=== PATIENT | male | born 1950 | race Hispanic/Latino ===

== ENCOUNTER 2016-09-13 10:49 | Outpatient (CLI) | payer BC ==
[2016-09-13 11:44] LABS: Blood Urea Nitrogen 11 mg/dL (9-20)
[2016-09-13] MEDS ORDERED: NACL ONE (12:15)
--- NOTE | 2016-09-14 07:48 | Cat Scan Report ---
CT SCAN OF THE ABDOMEN AND PELVIS WITH CONTRAST: HISTORY: Hematuria. TECHNIQUE: Helical CT in 1.25mm intervals following IV contrast. Sagittal and coronal reconstructions. COMPARISON: CT abdomen pelvis without contrast dated 04/19/16. FINDINGS: The prostate gland is moderately enlarged measuring 6.6 x 6.0 cm in axial plane and 7.4 cm in craniocaudal plane. No discrete prostate mass. No pelvic adenopathy. Correlate with PSA levels. The kidneys are normal size, contour and position. There is normal enhancement and excretion following IV contrast. A few tiny parapelvic cysts in the left renal sinus are noted. No renal mass or obvious renal stones. The ureters are normal course and caliber. No ureteral stones or abnormal dilatation. There is a moderate indentation along the bladder base because of the enlarged prostate gland. Otherwise, the bladder is normal. There is a 2 mm bladder calculus on the right side. In retrospect, this tiny calculus was seen on the 2016 exam. The liver is normal in size and is without focal defect. No gallstones or biliary dilatation are noted. The spleen and pancreas demonstrate a normal size and attenuation with no evidence of abnormal mass. The adrenal glands are normal. There is no intestinal obstruction or ascites. Normal appendix. The abdominal aorta is normal. No abnormalities are identified within the retroperitoneum or mesentery. There is no evidence of peritoneal air or fluid. There is no evidence of any abnormal masses or fluid collections within the pelvis. No adenopathy is identified. IMPRESSION: Enlarged prostate gland. 2 mm bladder calculus. Few tiny parapelvic cysts in the left renal sinus, otherwise, the kidneys are normal.
== END 2016-09-13 10:50 | disposition home or self-care (01) ==
LOC: CT 10:49
PROVIDERS: ATTEND Urology
DX: N28.1 Cyst of kidney, acquired (principal); N40.0 Benign prostatic hyperplasia without lower urinary tract symptoms; N20.0 Calculus of kidney
CPT/HCPCS: 36415; 74177; 82565; 84520; Q9967

== ENCOUNTER 2016-11-07 10:02 | Inpatient (IN) | payer BC ==
[2016-11-07] MEDS ORDERED: NACL 0.9% 1000 ML 1,000 ML IV ONE ×2 (10:28→12:02)
--- NOTE | 2016-11-07 10:53 | Emergency Department Report ---
Entered by MYA LING, acting as scribe for NIR RESTREPO NP. Chief Complaint: Urogenital-Male Stated Complaint: SWOLLEN TESTICLE/FEVER 103 Time Seen by Provider: 11/07/16 10:26 - HPI History of Present Illness: 66 y/o male presents to the ED c/o swollen testicle, fever, low blood pressure. PT states this am at 0300 his temp was 103. pt states he took an old antibiotic this morning. last dose of Tylenol was 2300 yesterday - ROS Review of Systems: Swollen testicle, fever and pain + dizziness when standing - Exam Vital Signs: Vital Signs 11/07/16 10:31 Temperature 99.5 F Pulse Rate 76 Respiratory 18 Rate Blood Pressure 91/63 O2 Sat by Pulse 99 Oximetry Physical Exam: pt looks well, non toxic gu exam not done in triage MSE screening note: Focused history and physical exam performed. Due to findings the following was ordered: labs, us, medication ED Disposition for MSE Condition: Stable This documentation as recorded by the scribe,MYA LING,accurately reflects the service I personally performed and the decisions made by me,NIR RESTREPO, [employer].
[2016-11-07 11:33] LABS: Hematocrit 42.9 % (35.5-45.6); Hemoglobin 13.8 gm/dl (11.8-15.2); Mean Corpuscular HGB Conc 32 % (32-34); Mean Corpuscular Hemoglobin 30 pg (28-32); Mean Corpuscular Volume 92 fl (84-94); Platelet Count 201 K/mm3 (140-440); Red Blood Count 4.67 M/mm3 (3.65-5.03)
[2016-11-07] MEDS ORDERED: ROCEPHIN IV ONE (12:02)
[2016-11-07] MEDS ORDERED: LEVAQUIN PO ONE ×2 (12:02→22:00)
[2016-11-07] MEDS ORDERED: DILAUDID IV ONE (12:02)
[2016-11-07] MEDS ORDERED: LEVAQUIN 500MG/100ML 500 MG/100 ML BAG IV ONE (12:05)
[2016-11-07] MEDS ORDERED: NACL ONE (12:06)
[2016-11-07 12:07] LABS: Basophils % (Manual) 0 % (0.0-1.8); Blastocytes % (Manual) 0 %; Eosinophils % (Manual) 0 % (0.0-4.3); Total Cells Counted Percent 3.5
[2016-11-07 12:08] LABS: Diff Status Complete; Platelet Estimate Consistent w Auto; RBC Morphology Normal
[2016-11-07 12:18] LABS: Alanine Aminotransferase 18 units/L (7-56); Albumin 3.6 g/dL (3.9-5); Albumin/Globulin Ratio 0.9 %; Alkaline Phosphatase 74 units/L (35-129); Anion Gap 25 mmol/L; BUN/Creatinine Ratio 15.83; Blood Urea Nitrogen 19 mg/dL (9-20); Calcium 9.3 mg/dL (8.4-10.2); Carbon Dioxide 19 mmol/L (22-30); Glucose 137 mg/dL (75-100); Potassium 4.8 mmol/L (3.6-5.0); Sodium 136 mmol/L (137-145); Total Protein 7.4 g/dL (6.3-8.2)
--- NOTE | 2016-11-07 12:52 | Ultrasound Report ---
ULTRASOUND TESTICULAR DOPPLER COMPLETE History: Left scrotal pain. Technique: Trans-scrotal ultrasound with spectral doppler interrogation. Findings: Color Doppler demonstrates increased flow to the left testicle compared to the right suggesting an orchitis is present. Both testicles are normal size, contour and echotexture. No mass or cyst. There are small bilateral epididymal head cysts. The epididymides are within normal limits otherwise. Small bilateral hydroceles are identified, left greater than right. Spectral Doppler waveforms demonstrate arterial flow to both testes. IMPRESSION: Findings consistent with left orchitis.
--- NOTE | 2016-11-07 13:08 | Emergency Department Report ---
ED Male HPI - General Chief complaint: Urogenital-Male Stated complaint: SWOLLEN TESTICLE/FEVER 103 Time Seen by Provider: 11/07/16 10:26 Source: patient Mode of arrival: Wheelchair Limitations: No Limitations - History of Present Illness MD Complaint: testicle pain, testicle swelling, dysuria, groin pain -: Sudden Location: left testicle, left inguinal region, left flank Severity: moderate Severity scale (0 -10): 8 Quality: aching, sharp, dull Consistency: constant Improves with: none Worsens with: none swelling, mass, urinary retention, blood in urine, dysuria. denies: discharge, rash, nausea/vomiting, incontinence - Related Data Sexually active: No Home Medications Medication Instructions Recorded Confirmed Last Taken Finasteride [Proscar] 5 mg PO DAILY 10/20/16 10/20/16 10/22/16 Silodosin [Rapaflo] 8 mg PO QDAY 10/20/16 10/20/16 10/22/16 Tadalafil [Cialis] 5 mg PO QDAY 10/20/16 10/20/16 Unknown Olmesartan Medoxomil [Benicar] 20 mg PO DAILY 10/23/16 10/23/16 10/23/16 06:00 Allergies Allergy/AdvReac Type Severity Reaction Status Date / Time No Known Allergies Allergy Verified 11/07/16 10:31 ED Review of Systems ROS: Stated complaint: SWOLLEN TESTICLE/FEVER 103 Other details as noted in HPI Comment: All other systems reviewed and negative ED Past Medical Hx - Past Medical History Hx Hypertension: Yes - Surgical History Additional Surgical History: TUR 10/23/16. RIGHT ANKLE - Social History Smoking Status: Never Smoker Substance Use Type: Prescribed - Medications Home Medications: Home Medications Medication Instructions Recorded Confirmed Last Taken Type Finasteride [Proscar] 5 mg PO DAILY 10/20/16 10/20/16 10/22/16 History Silodosin [Rapaflo] 8 mg PO QDAY 10/20/16 10/20/16 10/22/16 History Tadalafil [Cialis] 5 mg PO QDAY 10/20/16 10/20/16 Unknown History Olmesartan Medoxomil [Benicar] 20 mg PO DAILY 10/23/16 10/23/16 10/23/16 06:00 History ED Physical Exam - General Limitations: No Limitations General appearance: alert, in distress - Head Head exam: Present: atraumatic, normocephalic - Eye Eye exam: Present: normal appearance, PERRL - ENT ENT exam: Present: normal exam, normal orophraynx - Neck Neck exam: Present: normal inspection, tenderness - Respiratory Respiratory exam: Present: normal lung sounds bilaterally, respiratory distress - Cardiovascular Cardiovascular Exam: Present: regular rate, normal rhythm - GI/Abdominal GI/Abdominal exam: Present: soft. Absent: distended, tenderness, guarding, rebound, rigid - exam: Present: testicular tenderness, scrotal swelling - Back Exam Back exam: Present: normal inspection - Skin Skin exam: Present: intact ED Course Vital Signs 11/07/16 10:31 Temperature 99.5 F Pulse Rate 76 Respiratory 18 Rate Blood Pressure 91/63 O2 Sat by Pulse 99 Oximetry ED Medical Decision Making - Lab Data Result diagrams: 11/07/16 10:42 11/07/16 10:42 - Radiology Data Radiology results: report reviewed, image reviewed - Medical Decision Making will need admission for iv abx , orchitis on US and elevated WBC, normal lactic acid, better after fluids and dilaudid, talked to dr. davey of urology and they will see the patient in case he fails abx treatment , spoke to hospitalist and agree with plan for admission. Critical care attestation.: If time is entered above; I have spent that time in minutes in the direct care of this critically ill patient, excluding procedure time. ED Disposition Clinical Impression: Orchitis Disposition: -09 OP ADMIT IP TO THIS HOSP Is pt being admited?: Yes Does the pt Need Aspirin: No Condition: Good Instructions: Epididymitis (ED) Referrals: JUAN DANIEL BLAKE MD [Primary Care Provider] - 3-5 Days Forms: STI Treatment and Prevention Time of Disposition: 13:26
--- NOTE | 2016-11-07 13:19 | History and Physical Report ---
History of Present Illness Chief complaint: My testicle hurts History of present illness: 66 YO Male with BPH, HTN, Obesity presents to ED for evaluation. Pt states that he has been experiencing pain and swelling in his left testicle as well as pain with urination for the past 2 days, with worsening symptoms over the past 8 hours. Pt also acknowledges fever to 103. Pt denies flank pain, chills, CP, Palpittations, NVD, Syncope, Hematuria, Urgency, Frequency, Skin rashes, prolonged travel/immobility, leg swelling, calf pain , individual/family history of DVT/PE, - Past History Past Medical History: hypertension Past Surgical History: TURP Social history: , lives with family. denies: smoking, alcohol abuse, prescription drug abuse, IV drug use Family history: no significant family history (reviewed) Medications and Allergies Allergies Allergy/AdvReac Type Severity Reaction Status Date / Time No Known Allergies Allergy Verified 11/07/16 10:31 Home Medications Medication Instructions Recorded Confirmed Last Taken Type Finasteride [Proscar] 5 mg PO DAILY 10/20/16 10/20/16 10/22/16 History Silodosin [Rapaflo] 8 mg PO QDAY 10/20/16 10/20/16 10/22/16 History Tadalafil [Cialis] 5 mg PO QDAY 10/20/16 10/20/16 Unknown History Olmesartan Medoxomil [Benicar] 20 mg PO DAILY 10/23/16 10/23/16 10/23/16 06:00 History Review of Systems All systems: negative Genitourinary Male: dysuria, testicular pain Exam - Constitutional Vitals: Temp Pulse Resp BP Pulse Ox 99.5 F 76 18 91/63 99 11/07/16 10:31 11/07/16 10:31 11/07/16 10:31 11/07/16 10:31 11/07/16 10:31 General appearance: Present: mild distress, well-nourished - EENT Eyes: Present: PERRL ENT: hearing intact, clear oral mucosa - Neck Neck: Present: supple, normal ROM - Respiratory Respiratory effort: normal Respiratory: bilateral: CTA - Cardiovascular Heart Sounds: Present: S1 & S2. Absent: rub, click - Extremities Extremities: pulses symmetrical, No edema Peripheral Pulses: within normal limits - Abdominal General gastrointestinal: Present: soft, non-tender, non-distended, normal bowel sounds Male genitourinary: Present: normal - Integumentary Integumentary: Present: clear, warm, dry - Musculoskeletal Musculoskeletal: gait normal, strength equal bilaterally - Psychiatric Psychiatric: appropriate mood/affect, intact judgment & insight - Neurologic Neurologic: CNII-XII intact, moves all extremities Results - Labs CBC & Chem 7: 11/07/16 10:42 11/07/16 10:42 Labs: Abnormal lab results 11/07/16 11/07/16 11/07/16 Range/Units 10:42 10:42 10:42 WBC 48.0 H* (4.5-11.0) K/mm3 Seg Neuts % (Manual) 84.5 H (40.0-70.0) % Lymphocytes % (Manual) 3.0 L (13.4-35.0) % Seg Neutrophils # Man 40.6 H (1.8-7.7) K/mm3 Monocytes # (Manual) 1.7 H (0.0-0.8) K/mm3 Sodium 136 L (137-145) mmol/L Chloride 97.0 L (98-107) mmol/L Carbon Dioxide 19 L (22-30) mmol/L Glucose 137 H (75-100) mg/dL Lactic Acid < 0.20 L (0.7-2.0) mmol/L Total Bilirubin 1.30 H (0.1-1.2) mg/dL Albumin 3.6 L (3.9-5) g/dL Assessment and Plan - Patient Problems (1) Sepsis Current Visit: Yes Status: Acute Qualifiers: Sepsis type: S Plan to address problem: Sepsis Protocol: IV abx, IVF, supportive care, monitor uop q shift, blood cultures, serial lactate level (2) HTN (hypertension) Current Visit: No Status: Chronic Qualifiers: Hypertension type: essential hypertension Qualified Code(s): I10 - Essential (primary) hypertension Plan to address problem: Monitor BP q shift, hold BP medicaton until patient normotensive. (3) Orchitis Current Visit: Yes Status: Acute Plan to address problem: IV abx, supportive care, pain control, (4) DVT prophylaxis Current Visit: No Status: Acute
[2016-11-07] MEDS ORDERED: DULCOLAX PR PRN (13:23)
[2016-11-07] MEDS ORDERED: ZOFRAN IV PRN (13:23)
[2016-11-07] MEDS ORDERED: MILK OF MAGNESIA PO PRN (13:23)
[2016-11-07] MEDS ORDERED: TYLENOL PO PRN (13:23)
[2016-11-07] MEDS ORDERED: NACL 0.9% 1000 ML IV ONE (13:23)
[2016-11-07] MEDS ORDERED: DUONEB *Not for PRN Use IH (13:23)
[2016-11-07 13:30] LABS: Bacteria,Urine 1+ /HPF (Negative); Bilirubin,Urine NEG (Negative); Blood,Urine LG (Negative); Ketones,Urine NEG (Negative); Leukocyte Esterase,Urine LG (Negative); Mucus,Urine 1+ /HPF; Nitrite,Urine NEG (Negative); Urobilinogen,Urine < 2.0 mg/dL (<2.0)
--- NOTE | 2016-11-07 13:55 | Cat Scan Report ---
CT SCAN OF THE ABDOMEN AND PELVIS WITH CONTRAST: HISTORY: Abdominal pain, recent TURP. TECHNIQUE: Helical CT in 1.25mm intervals following IV contrast. Sagittal and coronal reconstructions. FINDINGS: The liver is normal in size and is without focal defect. No gallstones or biliary dilatation are noted. The spleen and pancreas demonstrate a normal size and attenuation with no evidence of abnormal mass. The kidneys are normal in size and position with no evidence of hydronephrosis or mass. The adrenal glands are normal. There is no intestinal obstruction or ascites. Normal appendix. The abdominal aorta is normal. No abnormalities are identified within the retroperitoneum or mesentery. There is no evidence of peritoneal air or fluid. There is no evidence of any abnormal masses or fluid collections within the pelvis. No adenopathy is identified. A Woods catheter decompresses the bladder. No obvious bladder abnormality. Trace left pleural effusion is noted and unchanged since 09/13/16. The visualized lung bases are clear. Heart size is normal. IMPRESSION: No acute abdominal process. Trace left pleural effusion.
[2016-11-07] MEDS: ZOSYN/NS 4.5GM/100ML 4.5 GM/100 ML VIAL IV SCH ×2 (15:03→21:04)
[2016-11-07] MEDS ORDERED: NACL 0.9% 1000 ML 1,000 ML ONE (15:23)
[2016-11-07 18:16] LABS: ISTAT Base Excess -3; ISTAT HCO3 20.9; ISTAT PCO2 30.7 (35-45); ISTAT PH 7.441 (7.35-7.45); ISTAT PO2 79 (80-105); ISTAT SITE 1; ISTAT SO2 96; ISTAT TCO2 22
[2016-11-08] MEDS: ZOSYN/NS 4.5GM/100ML 4.5 GM/100 ML VIAL IV SCH (05:49)
--- NOTE | 2016-11-08 07:49 | Admit Criteria Form ---
Admission Criteria Documentation: UROLOGIC DISEASE G Clinical Indications for Admission to Inpatient Care (Place ' X' for any and all applicable criteria): Hospital admission is needed for appropriate care of the patient because of 1 or more of the following: [ ]I. New-onset Reduced urine output, or hydronephrosis remaining after emergency or observation level care (as appropriate ) [ ]II. Renal disease needing inpatient care indicated by 1 or more of the following(2)(3)(4): [ ]a) Acute renal failure [ ]b) Significant uremic complications [ ]c) Acute kidney injury (that does not qualify as Acute renal failure ) requiring inpatient care indicated by ALL of the following(5)(6)(7)(8) (9): [ ]i) Worsening clinical status (eg, rising creatinine) despite outpatient and observation care treatment (eg, hydration) [ ]ii) Acute kidney injury indicated by 1 or more of the following: [ ]1) 2-fold or more rise in serum creatinine from baseline [ ]2) Reduction of more than 50% in estimated glomerular filtration rate from baseline [ ]3) Urine output less than 0.5 mL/kg/hr for 12 hours despite adequate volume status [ ]d) Systemic cause (eg, Goodpasture syndrome ) needing inpatient care [ ]e) Rapidly progressive renal disease needing inpatient care (eg, plasmapheresis, immunosuppression ) Anasarca needing inpatient care [ ]f) Hemoptysis [ ]g) Hemolysis, thrombosis, or infraction [ ]h) Anasarca needing inpatient care [ ]III. New-onset or uncontrolled nephrogenic diabetes insipidus [ ]IV. Urologic infection requiring inpatient care as indicated by 1 or more of the following(10)(11)(12): [ ]a) Hemodynamic instability [ ]b) Dehydration that is severe or persistent [ ]c) Failure of outpatient treatment [ ]d) Fany's gangrene [ ]e) Urinary obstruction [ ]f) Immunocompromised state (eg, chronic steroid use ) [ ]g) Known renal or urologic abnormalities(eg, indwelling catheter, structural abnormalities ) [ ]h) Recent urologic manipulation or procedure Urinary obstruction [ ]i) Abscess requiring drainage Immunocompromised state [ ]V. Acute urinary retention requiring inpatient management as indicated by ANY ONE of the following(1)(13): [ ]a) Retention cannot be alleviated via emergency or observation level care (eg, urinary catheter placement) [ ]b) Hemodynamic instability [ ]c) Acute neurologic etiology (eg, cauda equina) [ ]d) Dehydration or other complications not manageable with emergency or observation level care [ ]e) Acute kidney injury (that does not qualify as Acute renal failure ) requiring inpatient care indicated by ALL of the following(5)(6)(7)(8) (9): [ ]i) Acute kidney injury indicated by ANY ONE of the following: [ ]1) 2-fold or more rise in serum creatinine from baseline [ ]2) Reduction of more than 50% in estimated glomerular filtration rate from baseline [ ]ii) Worsening clinical status (eg, rising creatinine) despite outpatient and observation care treatment (eg, hydration) [ ]. Gross hematuria requiring inpatient management as indicated by ANY ONE of the following(1)(2): [ ]a) Evidence of renal obstruction [ ]b) Reduced urine output [ ]c) Clot retention after urinary catheterization and irrigation [ ]d) Severe Anemia [ ]e) Systemic cause needing inpatient treatment (eg, Goodpasture syndrome) [ ]VII. Priapism not responsive to emergency or observation care treatment [X]VII. Scrotal, testicular, or epididymal disorder requiring inpatient care indicated by 1 or more of the following(1)(14)(15)(16): [ ]a) Scrotal edema or infection not manageable with emergency or observation level care [ ]b) Orchitis not manageable with emergency or observation level care [X]c) Epididymitis not manageable with emergency or observation level of care [ ]d) Other scrotal, testicular, or epididymal disorder (eg, infection, inflammation) not manageable with emergency or observation level care [ ]IX. Complications of transplanted kidney indicated by 1 or more of the following [ ]a) Acute graft rejection requiring inpatient management (eg, intravenous immunosuppression) [ ]b) Acute kidney injury indicated by ALL of the following i) Acute kidney injury indicated by 1 or more of the following 1) 2-fold or more rise in serum creatinine from baseline 2) Reduction of more than 50% in estimated glomerular filtration rate from baseline 3) Urine output less than 0.5 mL/kg/hr for 12 hours despite adequate volume status ii) Kidney injury too severe or not responsive to outpatient and observation care treatment (eg, hydration) [ ]c) Infection requiring inpatient management (eg, Hemodynamic instability, need for intravenous antimicrobial treatment) [ ]d) Other complication of transplanted kidney requiring patient management (eg, severe diarrhea leading to malabsorption) [ ]X. Trauma to renal, genital, or urologic system requiring inpatient medical care [ ]XI. Urologic Disease condition, symptom, or finding for which emergency and observation care have failed or are not considered appropriate. The original [employer] content created by [employer] has been revised. The portions of the content which have been revised are identified through the use of italic text or in bold, and [facility] has neither reviewed nor approved the modified material. All other unmodified content is copyright [email or web address]. Please see references footnoted in the original [email or web address] edition 2016 Admission Criteria Met: Yes
--- NOTE | 2016-11-08 09:18 | Progress Note ---
Assessment and Plan Assessment and plan: 66 YO Male with BPH- who self caths as needed, HTN, Obesity presents to ED for evaluation. 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 Pt states that he has been experiencing pain and swelling in his left testicle as well as pain with urination for 2 days, he was found to have a fever to 103. Testicular ultrasound showed left orchitis Septic Shock/severe sepsis w/ hypotension which responded to IVF Received IVF, Hypotension is now resolved Sepsis Protocol: IV abx, IVF, supportive care, monitor uop q shift, blood cultures, serial lactate level Fever curve is coming down, wbc trending down Left Orchitis Patient is ready received Rocephin for empiric treatment of possible gonorrhea, urine culture pending Continue Levaquin which will cover enteric organisms and chlamydia, patient will need a total of 10 days of Levaquin. He can be transitioned to by mouth when improved urology consult with Dr Hoang HTN (hypertension) Resume home medications BPH Continue his home medications straight cath PRN DVT prophylaxis Lovenox History Interval history: He states that he had fever overnight, left testicular swelling and pain is improved. Hospitalist Physical - Physical exam Narrative exam: General: Patient appears well in no distress HEENT: MMM, EOMI cardiac: S1-S2 heard lungs: clear to auscultation, abdomen: soft, nontender, nondistended bowel sounds positive Left scrotal swelling edema, erythema and tenderness. extremities: no edema clubbing or cyanosis Skin: no rash or lesion Neuro: no focal deficit Psych: appropriate behavior and mood, cognition intact - Constitutional Vitals: Temp Pulse Resp BP Pulse Ox 99.9 F H 62 20 121/68 96 11/08/16 08:17 11/08/16 08:17 11/08/16 08:17 11/08/16 08:17 11/08/16 08:17 General appearance: Present: mild distress, well-nourished Results - Labs CBC & Chem 7: 11/08/16 10:46 11/08/16 10:46 Labs: Laboratory Last Values WBC 48.0 K/mm3 (4.5-11.0) H* 11/07/16 10:42 RBC 4.67 M/mm3 (3.65-5.03) 11/07/16 10:42 Hgb 13.8 gm/dl (11.8-15.2) 11/07/16 10:42 Hct 42.9 % (35.5-45.6) 11/07/16 10:42 MCV 92 fl (84-94) 11/07/16 10:42 MCH 30 pg (28-32) 11/07/16 10:42 MCHC 32 % (32-34) 11/07/16 10:42 RDW 14.0 % (13.2-15.2) 11/07/16 10:42 Plt Count 201 K/mm3 (140-440) 11/07/16 10:42 Add Manual Diff Complete 11/07/16 10:42 Total Counted 200 11/07/16 10:42 Seg Neuts % (Manual) 84.5 % (40.0-70.0) H 11/07/16 10:42 Band Neutrophils % 9.0 % 11/07/16 10:42 Lymphocytes % (Manual) 3.0 % (13.4-35.0) L 11/07/16 10:42 Reactive Lymphs % (Man) 0 % 11/07/16 10:42 Monocytes % (Manual) 3.5 % (0.0-7.3) 11/07/16 10:42 Eosinophils % (Manual) 0 % (0.0-4.3) 11/07/16 10:42 Basophils % (Manual) 0 % (0.0-1.8) 11/07/16 10:42 Metamyelocytes % 0 % 11/07/16 10:42 Myelocytes % 0 % 11/07/16 10:42 Promyelocytes % 0 % 11/07/16 10:42 Blast Cells % 0 % 11/07/16 10:42 Nucleated RBC % Not Reportable 11/07/16 10:42 Seg Neutrophils # Man 40.6 K/mm3 (1.8-7.7) H 11/07/16 10:42 Band Neutrophils # 4.3 K/mm3 11/07/16 10:42 Lymphocytes # (Manual) 1.4 K/mm3 (1.2-5.4) 11/07/16 10:42 Abs React Lymphs (Man) 0.0 K/mm3 11/07/16 10:42 Monocytes # (Manual) 1.7 K/mm3 (0.0-0.8) H 11/07/16 10:42 Eosinophils # (Manual) 0.0 K/mm3 (0.0-0.4) 11/07/16 10:42 Basophils # (Manual) 0.0 K/mm3 (0.0-0.1) 11/07/16 10:42 Metamyelocytes # 0.0 K/mm3 11/07/16 10:42 Myelocytes # 0.0 K/mm3 11/07/16 10:42 Promyelocytes # 0.0 K/mm3 11/07/16 10:42 Blast Cells # 0.0 K/mm3 11/07/16 10:42 WBC Morphology Not Reportable 11/07/16 10:42 Hypersegmented Neuts Not Reportable 11/07/16 10:42 Hyposegmented Neuts Not Reportable 11/07/16 10:42 Hypogranular Neuts Not Reportable 11/07/16 10:42 Smudge Cells Not Reportable 11/07/16 10:42 Toxic Granulation Not Reportable 11/07/16 10:42 Toxic Vacuolation Not Reportable 11/07/16 10:42 Dohle Bodies Not Reportable 11/07/16 10:42 Pelger-Huet Anomaly Not Reportable 11/07/16 10:42 Risa Rods Not Reportable 11/07/16 10:42 Platelet Estimate Consistent w auto 11/07/16 10:42 Clumped Platelets Not Reportable 11/07/16 10:42 Plt Clumps, EDTA Not Reportable 11/07/16 10:42 Large Platelets Not Reportable 11/07/16 10:42 Giant Platelets Not Reportable 11/07/16 10:42 Platelet Satelliting Not Reportable 11/07/16 10:42 Plt Morphology Comment Not Reportable 11/07/16 10:42 RBC Morphology Normal 11/07/16 10:42 Dimorphic RBCs Not Reportable 11/07/16 10:42 Polychromasia Not Reportable 11/07/16 10:42 Hypochromasia Not Reportable 11/07/16 10:42 Poikilocytosis Not Reportable 11/07/16 10:42 Anisocytosis Not Reportable 11/07/16 10:42 Microcytosis Not Reportable 11/07/16 10:42 Macrocytosis Not Reportable 11/07/16 10:42 Spherocytes Not Reportable 11/07/16 10:42 Pappenheimer Bodies Not Reportable 11/07/16 10:42 Sickle Cells Not Reportable 11/07/16 10:42 Target Cells Not Reportable 11/07/16 10:42 Tear Drop Cells Not Reportable 11/07/16 10:42 Ovalocytes Not Reportable 11/07/16 10:42 Helmet Cells Not Reportable 11/07/16 10:42 Barron-Ro[place] Bodies Not Reportable 11/07/16 10:42 [place] Rings Not Reportable 11/07/16 10:42 Farnaz Cells Not Reportable 11/07/16 10:42 Bite Cells Not Reportable 11/07/16 10:42 Crenated Cell Not Reportable 11/07/16 10:42 Elliptocytes Not Reportable 11/07/16 10:42 Acanthocytes (Spur) Not Reportable 11/07/16 10:42 Rouleaux Not Reportable 11/07/16 10:42 Hemoglobin C Crystals Not Reportable 11/07/16 10:42 Schistocytes Not Reportable 11/07/16 10:42 Malaria parasites Not Reportable 11/07/16 10:42 Graham Bodies Not Reportable 11/07/16 10:42 Hem Pathologist Commnt Sent to pathology 11/07/16 10:42 POC ABG pH 7.441 (7.35-7.45) 11/07/16 18:06 POC ABG pCO2 30.7 (35-45) L 11/07/16 18:06 POC ABG pO2 79 (80-105) L 11/07/16 18:06 POC ABG HCO3 20.9 11/07/16 18:06 POC ABG Total CO2 22 11/07/16 18:06 POC ABG O2 Sat 96 11/07/16 18:06 POC ABG Base Excess -3 11/07/16 18:06 FiO2 21 % 11/07/16 18:06 Sodium 136 mmol/L (137-145) L 11/07/16 10:42 Potassium 4.8 mmol/L (3.6-5.0) 11/07/16 10:42 Chloride 97.0 mmol/L (98-107) L 11/07/16 10:42 Carbon Dioxide 19 mmol/L (22-30) L 11/07/16 10:42 Anion Gap 25 mmol/L 11/07/16 10:42 BUN 19 mg/dL (9-20) 11/07/16 10:42 Creatinine 1.2 mg/dL (0.8-1.5) 11/07/16 10:42 Estimated GFR > 60 ml/min 11/07/16 10:42 BUN/Creatinine Ratio 15.83 % 11/07/16 10:42 Glucose 137 mg/dL (75-100) H 11/07/16 10:42 Lactic Acid < 0.20 mmol/L (0.7-2.0) L 11/07/16 10:42 Calcium 9.3 mg/dL (8.4-10.2) 11/07/16 10:42 Total Bilirubin 1.30 mg/dL (0.1-1.2) H 11/07/16 10:42 AST 15 units/L (5-40) 11/07/16 10:42 ALT 18 units/L (7-56) 11/07/16 10:42 Alkaline Phosphatase 74 units/L (35-129) 11/07/16 10:42 Total Protein 7.4 g/dL (6.3-8.2) 11/07/16 10:42 Albumin 3.6 g/dL (3.9-5) L 11/07/16 10:42 Albumin/Globulin Ratio 0.9 % 11/07/16 10:42 Urine Color Norma (Yellow) 11/07/16 13:07 Urine Turbidity Clear (Clear) 11/07/16 13:07 Urine pH 5.0 (5.0-7.0) 11/07/16 13:07 Ur Specific [place] 1.026 (1.003-1.030) 11/07/16 13:07 Urine Protein 100 mg/dl mg/dL (Negative) 11/07/16 13:07 Urine Glucose (UA) Neg mg/dL (Negative) 11/07/16 13:07 Urine Ketones Neg mg/dL (Negative) 11/07/16 13:07 Urine Blood Lg (Negative) 11/07/16 13:07 Urine Nitrite Neg (Negative) 11/07/16 13:07 Urine Bilirubin Neg (Negative) 11/07/16 13:07 Urine Urobilinogen < 2.0 mg/dL (<2.0) 11/07/16 13:07 Ur Leukocyte Esterase Lg (Negative) 11/07/16 13:07 Urine WBC (Auto) 95.0 /HPF (0.0-6.0) H 11/07/16 13:07 Urine RBC (Auto) 30.0 /HPF (0.0-6.0) 11/07/16 13:07 U Epithel Cells (Auto) < 1.0 /HPF (0-13.0) 11/07/16 13:07 Urine Bacteria (Auto) 1+ /HPF (Negative) 11/07/16 13:07 Urine Mucus 1+ /HPF 11/07/16 13:07 Blood Type O POSITIVE 11/07/16 13:40 Antibody Screen TNR 11/07/16 13:40 MELI Antibody Screen Negative 11/07/16 13:40
[2016-11-08] MEDS: DILAUDID IV PRN ×2 (09:22→17:19)
[2016-11-08] MEDS ORDERED: SILODOSIN 8 MG PO SCH (10:00)
[2016-11-08] MEDS ORDERED: OLMESARTAN MEDOXOMIL 20 MG PO SCH (10:00)
--- NOTE | 2016-11-08 10:31 | Progress Note ---
Assessment and Plan pt says he placed cath x 2 leon was doing ok until then had abot 300-350 pvr did not cath after pain swelling 3 days later will manage with iv abs and pederson may need orch if prograsses but now improving Subjective Date of service: 11/08/16 Principal diagnosis: L epididymoorchitis Objective - Constitutional Vitals: Vital Signs - 12hr 11/07/16 11/07/16 11/08/16 23:00 23:30 08:17 Temperature 98.8 F 99.9 F H Pulse Rate [ 71 62 Right] Respiratory 16 20 Rate Blood Pressure 113/56 121/68 [Left Arm] O2 Sat by Pulse 96 93 96 Oximetry General appearance: Present: no acute distress - Neck Neck: supple - Respiratory Respiratory effort: normal Extremities: no ischemia - Gastrointestinal General gastrointestinal: Present: soft, non-tender - Genitourinary Male genitourinary: tender, asymmetrical - Labs CBC & Chem 7: 11/07/16 10:42 11/07/16 10:42 Labs: Abnormal lab results 11/07/16 Range/Units 18:06 POC ABG pCO2 30.7 L (35-45) POC ABG pO2 79 L (80-105)
[2016-11-08 11:02] LABS: Hematocrit 36.6 % (35.5-45.6); Mean Corpuscular HGB Conc 33 % (32-34); Mean Corpuscular Hemoglobin 30 pg (28-32); Mean Corpuscular Volume 91 fl (84-94); Platelet Count 171 K/mm3 (140-440); Red Blood Count 4.01 M/mm3 (3.65-5.03); Red Cell Distribution Width 14.3 % (13.2-15.2)
[2016-11-08 11:07] LABS: White Blood Count 27.1 K/mm3 (4.5-11.0)
[2016-11-08 11:22] LABS: Anion Gap 16 mmol/L; BUN/Creatinine Ratio 16.25; Blood Urea Nitrogen 13 mg/dL (9-20); Calcium 8.3 mg/dL (8.4-10.2); Carbon Dioxide 24 mmol/L (22-30); Chloride 103.5 mmol/L (98-107); Glucose 115 mg/dL (75-100); Potassium 4.2 mmol/L (3.6-5.0); Sodium 139 mmol/L (137-145)
[2016-11-08 11:55] LABS: Basophils % (Manual) 0 % (0.0-1.8); Blastocytes % (Manual) 0 %; Eosinophils % (Manual) 0 % (0.0-4.3)
[2016-11-08 11:56] LABS: Anisocytosis 1+; Diff Status Complete; Ovalocytes 1+; Polychromasia Few
[2016-11-08] MEDS: PROSCAR PO SCH (12:40)
[2016-11-08] MEDS: LEVAQUIN 750MG/150ML 750 MG/150 ML BAG IV SCH (15:00)
--- NOTE | 2016-11-08 15:03 | Progress Note ---
Assessment and Plan wbc down temp down improving Subjective Date of service: 11/08/16 Principal diagnosis: L epididymoorchitis Objective - Constitutional Vitals: Vital Signs - 12hr 11/08/16 11/08/16 08:17 11:41 Temperature 99.9 F H 98.0 F Pulse Rate [ 68 Apical] Pulse Rate [ 62 68 Right] Respiratory 20 18 Rate Blood Pressure 121/68 126/76 [Left Arm] O2 Sat by Pulse 96 98 Oximetry General appearance: Present: no acute distress - Respiratory Respiratory effort: normal - Labs CBC & Chem 7: 11/08/16 10:46 11/08/16 10:46 Labs: Abnormal lab results 11/07/16 11/08/16 11/08/16 Range/Units 18:06 10:46 10:46 WBC 27.1 H (4.5-11.0) K/mm3 Seg Neuts % (Manual) 92.0 H (40.0-70.0) % Lymphocytes % (Manual) 3.0 L (13.4-35.0) % Seg Neutrophils # Man 24.9 H (1.8-7.7) K/mm3 Lymphocytes # (Manual) 0.8 L (1.2-5.4) K/mm3 POC ABG pCO2 30.7 L (35-45) POC ABG pO2 79 L (80-105) Glucose 115 H (75-100) mg/dL Calcium 8.3 L (8.4-10.2) mg/dL
[2016-11-08] MEDS: LOVENOX SUB-Q SCH (22:16)
[2016-11-09 05:01] LABS: Anion Gap 13 mmol/L; BUN/Creatinine Ratio 14.28; Blood Urea Nitrogen 10 mg/dL (9-20); Calcium 8.2 mg/dL (8.4-10.2); Carbon Dioxide 26 mmol/L (22-30); Chloride 99.1 mmol/L (98-107); Glucose 102 mg/dL (75-100); Potassium 3.7 mmol/L (3.6-5.0); Sodium 134 mmol/L (137-145)
[2016-11-09 05:15] LABS: Hematocrit 35.5 % (35.5-45.6); Hemoglobin 11.8 gm/dl (11.8-15.2); Mean Corpuscular HGB Conc 33 % (32-34); Mean Corpuscular Hemoglobin 30 pg (28-32); Mean Corpuscular Volume 89 fl (84-94); Platelet Count 166 K/mm3 (140-440); Red Blood Count 3.99 M/mm3 (3.65-5.03); Red Cell Distribution Width 14.2 % (13.2-15.2)
[2016-11-09 05:17] LABS: White Blood Count 22.1 K/mm3 (4.5-11.0)
[2016-11-09 06:16] LABS: Basophils % (Manual) 0 % (0.0-1.8); Blastocytes % (Manual) 0 %; Eosinophils % (Manual) 0 % (0.0-4.3)
[2016-11-09 06:17] LABS: Anisocytosis 1+; Diff Status Complete; Platelet Estimate Consistent w Auto; Polychromasia Rare
[2016-11-09] MEDS: DILAUDID IV PRN (08:01)
--- NOTE | 2016-11-09 09:01 | Progress Note ---
Assessment and Plan Assessment and plan: 66 YO Male with BPH- who self caths as needed, HTN, Obesity presents to ED for evaluation. 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 Testicular ultrasound showed left orchitis Septic Shock/severe sepsis w/ hypotension which responded to IVF Received IVF, Hypotension is now resolved Sepsis Protocol: IV abx, IVF, supportive care, monitor uop q shift, blood cultures ngtd, urine cx grew de guzman sensitive pseudomonas Fever curve is coming down, wbc trending down left epididymoorchitis Patient is ready received Rocephin for empiric treatment of possible gonorrhea, urine culture grew de guzman sensitive pseudomonas , blood cx-NGTD Continue Levaquin which will cover enteric organisms and chlamydia, patient will need a total of 10 days of Levaquin. He can be transitioned to by mouth when improved urology consult appreciated, obtain U/S today HTN (hypertension) Resume home medications BPH Continue his home medications straight cath PRN DVT prophylaxis Lovenox History Interval history: fevers have now resolved, left testicular swelling and pain is improved. Hospitalist Physical - Physical exam Narrative exam: General: Patient appears well in no distress HEENT: MMM, EOMI cardiac: S1-S2 heard lungs: clear to auscultation, abdomen: soft, nontender, nondistended bowel sounds positive Left scrotal swelling edema, erythema and tenderness. extremities: no edema clubbing or cyanosis Skin: no rash or lesion Neuro: no focal deficit Psych: appropriate behavior and mood, cognition intact - Constitutional Vitals: Temp Pulse Resp BP Pulse Ox 99.5 F 66 18 135/66 97 11/09/16 00:00 11/09/16 00:00 11/09/16 08:01 11/09/16 00:00 11/09/16 00:00 General appearance: Present: no acute distress Results - Labs CBC & Chem 7: 11/09/16 03:54 11/09/16 03:54 Labs: Laboratory Last Values WBC 22.1 K/mm3 (4.5-11.0) H 11/09/16 03:54 RBC 3.99 M/mm3 (3.65-5.03) 11/09/16 03:54 Hgb 11.8 gm/dl (11.8-15.2) 11/09/16 03:54 Hct 35.5 % (35.5-45.6) 11/09/16 03:54 MCV 89 fl (84-94) 11/09/16 03:54 MCH 30 pg (28-32) 11/09/16 03:54 MCHC 33 % (32-34) 11/09/16 03:54 RDW 14.2 % (13.2-15.2) 11/09/16 03:54 Plt Count 166 K/mm3 (140-440) 11/09/16 03:54 Add Manual Diff Complete 11/09/16 03:54 Total Counted 100 11/09/16 03:54 Seg Neuts % (Manual) 81.0 % (40.0-70.0) H 11/09/16 03:54 Band Neutrophils % 4.0 % 11/09/16 03:54 Lymphocytes % (Manual) 8.0 % (13.4-35.0) L 11/09/16 03:54 Reactive Lymphs % (Man) 0 % 11/09/16 03:54 Monocytes % (Manual) 7.0 % (0.0-7.3) 11/09/16 03:54 Eosinophils % (Manual) 0 % (0.0-4.3) 11/09/16 03:54 Basophils % (Manual) 0 % (0.0-1.8) 11/09/16 03:54 Metamyelocytes % 0 % 11/09/16 03:54 Myelocytes % 0 % 11/09/16 03:54 Promyelocytes % 0 % 11/09/16 03:54 Blast Cells % 0 % 11/09/16 03:54 Nucleated RBC % Not Reportable 11/09/16 03:54 Seg Neutrophils # Man 17.9 K/mm3 (1.8-7.7) H 11/09/16 03:54 Band Neutrophils # 0.9 K/mm3 11/09/16 03:54 Lymphocytes # (Manual) 1.8 K/mm3 (1.2-5.4) 11/09/16 03:54 Abs React Lymphs (Man) 0.0 K/mm3 11/09/16 03:54 Monocytes # (Manual) 1.5 K/mm3 (0.0-0.8) H 11/09/16 03:54 Eosinophils # (Manual) 0.0 K/mm3 (0.0-0.4) 11/09/16 03:54 Basophils # (Manual) 0.0 K/mm3 (0.0-0.1) 11/09/16 03:54 Metamyelocytes # 0.0 K/mm3 11/09/16 03:54 Myelocytes # 0.0 K/mm3 11/09/16 03:54 Promyelocytes # 0.0 K/mm3 11/09/16 03:54 Blast Cells # 0.0 K/mm3 11/09/16 03:54 Pathologist Review 11/07/16 10:42 WBC Morphology Not Reportable 11/09/16 03:54 Hypersegmented Neuts Not Reportable 11/09/16 03:54 Hyposegmented Neuts Not Reportable 11/09/16 03:54 Hypogranular Neuts Not Reportable 11/09/16 03:54 Smudge Cells Not Reportable 11/09/16 03:54 Toxic Granulation Not Reportable 11/09/16 03:54 Toxic Vacuolation Not Reportable 11/09/16 03:54 Dohle Bodies Not Reportable 11/09/16 03:54 Pelger-Huet Anomaly Not Reportable 11/09/16 03:54 Risa Rods Not Reportable 11/09/16 03:54 Platelet Estimate Consistent w auto 11/09/16 03:54 Clumped Platelets Not Reportable 11/09/16 03:54 Plt Clumps, EDTA Not Reportable 11/09/16 03:54 Large Platelets Not Reportable 11/09/16 03:54 Giant Platelets Not Reportable 11/09/16 03:54 Platelet Satelliting Not Reportable 11/09/16 03:54 Plt Morphology Comment Not Reportable 11/09/16 03:54 RBC Morphology Not Reportable 11/09/16 03:54 Dimorphic RBCs Not Reportable 11/09/16 03:54 Polychromasia Rare 11/09/16 03:54 Hypochromasia Not Reportable 11/09/16 03:54 Poikilocytosis Not Reportable 11/09/16 03:54 Anisocytosis 1+ 11/09/16 03:54 Microcytosis Not Reportable 11/09/16 03:54 Macrocytosis Not Reportable 11/09/16 03:54 Spherocytes Not Reportable 11/09/16 03:54 Pappenheimer Bodies Not Reportable 11/09/16 03:54 Sickle Cells Not Reportable 11/09/16 03:54 Target Cells Not Reportable 11/09/16 03:54 Tear Drop Cells Not Reportable 11/09/16 03:54 Ovalocytes Not Reportable 11/09/16 03:54 Helmet Cells Not Reportable 11/09/16 03:54 Barron-[place] Bodies Not Reportable 11/09/16 03:54 [place] Rings Not Reportable 11/09/16 03:54 Farnaz Cells Not Reportable 11/09/16 03:54 Bite Cells Not Reportable 11/09/16 03:54 Crenated Cell Not Reportable 11/09/16 03:54 Elliptocytes Not Reportable 11/09/16 03:54 Acanthocytes (Spur) Not Reportable 11/09/16 03:54 Rouleaux Not Reportable 11/09/16 03:54 Hemoglobin C Crystals Not Reportable 11/09/16 03:54 Schistocytes Not Reportable 11/09/16 03:54 Malaria parasites Not Reportable 11/09/16 03:54 Graham Bodies Not Reportable 11/09/16 03:54 Hem Pathologist Commnt No 11/09/16 03:54 POC ABG pH 7.441 (7.35-7.45) 11/07/16 18:06 POC ABG pCO2 30.7 (35-45) L 11/07/16 18:06 POC ABG pO2 79 (80-105) L 11/07/16 18:06 POC ABG HCO3 20.9 11/07/16 18:06 POC ABG Total CO2 22 11/07/16 18:06 POC ABG O2 Sat 96 11/07/16 18:06 POC ABG Base Excess -3 11/07/16 18:06 FiO2 21 % 11/07/16 18:06 Sodium 134 mmol/L (137-145) L 11/09/16 03:54 Potassium 3.7 mmol/L (3.6-5.0) 11/09/16 03:54 Chloride 99.1 mmol/L (98-107) 11/09/16 03:54 Carbon Dioxide 26 mmol/L (22-30) 11/09/16 03:54 Anion Gap 13 mmol/L 11/09/16 03:54 BUN 10 mg/dL (9-20) 11/09/16 03:54 Creatinine 0.7 mg/dL (0.8-1.5) L 11/09/16 03:54 Estimated GFR > 60 ml/min 11/09/16 03:54 BUN/Creatinine Ratio 14.28 % 11/09/16 03:54 Glucose 102 mg/dL (75-100) H 11/09/16 03:54 Lactic Acid < 0.20 mmol/L (0.7-2.0) L 11/07/16 10:42 Calcium 8.2 mg/dL (8.4-10.2) L 11/09/16 03:54 Total Bilirubin 1.30 mg/dL (0.1-1.2) H 11/07/16 10:42 AST 15 units/L (5-40) 11/07/16 10:42 ALT 18 units/L (7-56) 11/07/16 10:42 Alkaline Phosphatase 74 units/L (35-129) 11/07/16 10:42 Total Protein 7.4 g/dL (6.3-8.2) 11/07/16 10:42 Albumin 3.6 g/dL (3.9-5) L 11/07/16 10:42 Albumin/Globulin Ratio 0.9 % 11/07/16 10:42 Urine Color Norma (Yellow) 11/07/16 13:07 Urine Turbidity Clear (Clear) 11/07/16 13:07 Urine pH 5.0 (5.0-7.0) 11/07/16 13:07 Ur Specific [place] 1.026 (1.003-1.030) 11/07/16 13:07 Urine Protein 100 mg/dl mg/dL (Negative) 11/07/16 13:07 Urine Glucose (UA) Neg mg/dL (Negative) 11/07/16 13:07 Urine Ketones Neg mg/dL (Negative) 11/07/16 13:07 Urine Blood Lg (Negative) 11/07/16 13:07 Urine Nitrite Neg (Negative) 11/07/16 13:07 Urine Bilirubin Neg (Negative) 11/07/16 13:07 Urine Urobilinogen < 2.0 mg/dL (<2.0) 11/07/16 13:07 Ur Leukocyte Esterase Lg (Negative) 11/07/16 13:07 Urine WBC (Auto) 95.0 /HPF (0.0-6.0) H 11/07/16 13:07 Urine RBC (Auto) 30.0 /HPF (0.0-6.0) 11/07/16 13:07 U Epithel Cells (Auto) < 1.0 /HPF (0-13.0) 11/07/16 13:07 Urine Bacteria (Auto) 1+ /HPF (Negative) 11/07/16 13:07 Urine Mucus 1+ /HPF 11/07/16 13:07 Blood Type O POSITIVE 11/07/16 13:40 Antibody Screen TNR 11/07/16 13:40 MELI Antibody Screen Negative 11/07/16 13:40
[2016-11-09] MEDS: COZAAR PO SCH (09:18)
[2016-11-09] MEDS: PROSCAR PO SCH (09:20)
--- NOTE | 2016-11-09 12:28 | Progress Note ---
Assessment and Plan still severe pain skin stuck to underlying fascia diffuse now palp fluid ?? abcess will do R vas as well may still need cic informed consent Subjective Date of service: 11/09/16 Principal diagnosis: L epididymoorchitis Objective - Constitutional Vitals: Vital Signs - 12hr 11/09/16 11/09/16 07:10 08:01 Temperature 99.9 F H Pulse Rate [ 0 L Apical] Pulse Rate [ 56 L Right] Respiratory 16 18 Rate Blood Pressure 148/70 [Left Arm] O2 Sat by Pulse 97 Oximetry General appearance: Present: mild distress - Respiratory Respiratory effort: normal - Genitourinary Male genitourinary: tender - Labs CBC & Chem 7: 11/09/16 03:54 11/09/16 03:54 Labs: Abnormal lab results 11/09/16 11/09/16 Range/Units 03:54 03:54 WBC 22.1 H (4.5-11.0) K/mm3 Seg Neuts % (Manual) 81.0 H (40.0-70.0) % Lymphocytes % (Manual) 8.0 L (13.4-35.0) % Seg Neutrophils # Man 17.9 H (1.8-7.7) K/mm3 Monocytes # (Manual) 1.5 H (0.0-0.8) K/mm3 Sodium 134 L (137-145) mmol/L Creatinine 0.7 L (0.8-1.5) mg/dL Glucose 102 H (75-100) mg/dL Calcium 8.2 L (8.4-10.2) mg/dL
--- NOTE | 2016-11-09 14:07 | Ultrasound Report ---
Testicular sonogram: Compared to 11/07/16. History: Swollen testes/scrotum. Findings: Right testes measures 4.5 x 3.1 x 2.5 cm. Normal echogenicity with normal color flow. Left testes measures 3.7 x 2.9 x 3.4 cm. Increased color flow with normal echogenicity. Bilateral small epididymal head cysts. The body and tail of the right and left epididymis appears unremarkable. Minimal right hydrocele and moderate left hydrocele with multiple septa. Impression: Orchitis left testis without interval change. Bilateral hydrocele, more pronounced than complex left testis.
[2016-11-09] MEDS: LEVAQUIN 750MG/150ML 750 MG/150 ML BAG IV SCH (14:15)
--- NOTE | 2016-11-09 16:48 | Anesthesia Consultation ---
Anesthesia Consult and Med Hx Date of service: 11/10/16 - Airway Anesthetic Teeth Evaluation: Good ROM Head & Neck: Adequate Mental/Hyoid Distance: Adequate Mallampati Class: Class I Intubation Access Assessment: Good - Pulmonary Exam CTA: Yes - Cardiac Exam Cardiac Exam: RRR - Pre-Operative Health Status ASA Pre-Surgery Classification: ASA3 Proposed Anesthetic Plan: General - Pulmonary Hx Smoking: No - Cardiovascular System Hx Hypertension: Yes - Other Systems Hx Cancer: No Hx Obesity: Yes - Additional Comments Anesthesia Medical History Comments: BPH
[2016-11-09] MEDS: LOVENOX SUB-Q SCH (21:55)
[2016-11-10] MEDS ORDERED: VERSED IV NR (00:01)
[2016-11-10] MEDS: DILAUDID IV PRN ×2 (00:21→08:15)
[2016-11-10 05:25] LABS: Hematocrit 35.9 % (35.5-45.6); Hemoglobin 12.2 gm/dl (11.8-15.2); Mean Corpuscular HGB Conc 34 % (32-34); Mean Corpuscular Hemoglobin 30 pg (28-32); Mean Corpuscular Volume 89 fl (84-94); Platelet Count 168 K/mm3 (140-440); Red Blood Count 4.04 M/mm3 (3.65-5.03); Red Cell Distribution Width 13.9 % (13.2-15.2); White Blood Count 16.4 K/mm3 (4.5-11.0)
[2016-11-10] MEDS: NACL 0.9% 1000 ML 1,000 ML IV SCH ×2 (06:30→13:08)
[2016-11-10] MEDS ORDERED: PEPCID IV NR (07:00)
--- NOTE | 2016-11-10 07:50 | Progress Note ---
Assessment and Plan Assessment and plan: 66 YO Male with BPH- who self caths as needed, HTN, Obesity presents to ED for evaluation. 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 Pt states that he has been experiencing pain and swelling in his left testicle as well as pain with urination for 2 days, he was found to have a fever to 103. Testicular ultrasound showed left orchitis Septic Shock/severe sepsis w/ hypotension which responded to IVF Received IVF, Hypotension is now resolved Sepsis Protocol: IV abx, IVF, supportive care, monitor uop q shift, blood cultures ngtd, urine cx grew de guzman sensitive pseudomonas Fever curve is coming down, wbc trending down left epididymoorchitis Patient is ready received Rocephin for empiric treatment of possible gonorrhea, urine culture grew de guzman sensitive pseudomonas , blood cx-NGTD Continue Levaquin which will cover enteric organisms and chlamydia, patient will need a total of 10 days of Levaquin. He can be transitioned to by mouth when improved urology consult appreciated, repeat U/S unchanged -planned for orchiectomy today HTN (hypertension) continue home medications BPH Continue his home medications straight cath PRN DVT prophylaxis Lovenox History Interval history: fevers have now resolved, left testicular swelling and pain is improved. Hospitalist Physical - Physical exam Narrative exam: General: Patient appears well in no distress HEENT: MMM, EOMI cardiac: S1-S2 heard lungs: clear to auscultation, abdomen: soft, nontender, nondistended bowel sounds positive Left scrotal swelling edema, erythema and tenderness. extremities: no edema clubbing or cyanosis Skin: no rash or lesion Neuro: no focal deficit Psych: appropriate behavior and mood, cognition intact - Constitutional Vitals: Temp Pulse Resp BP Pulse Ox 99.9 F H 64 18 127/81 98 11/10/16 04:13 11/10/16 04:13 11/10/16 04:13 11/10/16 04:13 11/10/16 04:13 General appearance: Present: no acute distress Results - Labs CBC & Chem 7: 11/10/16 04:44 11/09/16 03:54 Labs: Laboratory Last Values WBC 16.4 K/mm3 (4.5-11.0) H 11/10/16 04:44 RBC 4.04 M/mm3 (3.65-5.03) 11/10/16 04:44 Hgb 12.2 gm/dl (11.8-15.2) 11/10/16 04:44 Hct 35.9 % (35.5-45.6) 11/10/16 04:44 MCV 89 fl (84-94) 11/10/16 04:44 MCH 30 pg (28-32) 11/10/16 04:44 MCHC 34 % (32-34) 11/10/16 04:44 RDW 13.9 % (13.2-15.2) 11/10/16 04:44 Plt Count 168 K/mm3 (140-440) 11/10/16 04:44 Lymph % (Auto) Paper Reclaiming Machine Operator 11/10/16 04:44 Banner % (Auto) Paper Reclaiming Machine Operator 11/10/16 04:44 Eos % (Auto) Paper Reclaiming Machine Operator 11/10/16 04:44 Baso % (Auto) Paper Reclaiming Machine Operator 11/10/16 04:44 Lymph # Paper Reclaiming Machine Operator 11/10/16 04:44 Banner # Paper Reclaiming Machine Operator 11/10/16 04:44 Eos # Paper Reclaiming Machine Operator 11/10/16 04:44 Baso # Paper Reclaiming Machine Operator 11/10/16 04:44 Add Manual Diff Complete 11/09/16 03:54 Total Counted 100 11/09/16 03:54 Seg Neutrophils % Paper Reclaiming Machine Operator 11/10/16 04:44 Seg Neuts % (Manual) 81.0 % (40.0-70.0) H 11/09/16 03:54 Band Neutrophils % 4.0 % 11/09/16 03:54 Lymphocytes % (Manual) 8.0 % (13.4-35.0) L 11/09/16 03:54 Reactive Lymphs % (Man) 0 % 11/09/16 03:54 Monocytes % (Manual) 7.0 % (0.0-7.3) 11/09/16 03:54 Eosinophils % (Manual) 0 % (0.0-4.3) 11/09/16 03:54 Basophils % (Manual) 0 % (0.0-1.8) 11/09/16 03:54 Metamyelocytes % 0 % 11/09/16 03:54 Myelocytes % 0 % 11/09/16 03:54 Promyelocytes % 0 % 11/09/16 03:54 Blast Cells % 0 % 11/09/16 03:54 Nucleated RBC % Not Reportable 11/09/16 03:54 Seg Neutrophils # Paper Reclaiming Machine Operator 11/10/16 04:44 Seg Neutrophils # Man 17.9 K/mm3 (1.8-7.7) H 11/09/16 03:54 Band Neutrophils # 0.9 K/mm3 11/09/16 03:54 Lymphocytes # (Manual) 1.8 K/mm3 (1.2-5.4) 11/09/16 03:54 Abs React Lymphs (Man) 0.0 K/mm3 11/09/16 03:54 Monocytes # (Manual) 1.5 K/mm3 (0.0-0.8) H 11/09/16 03:54 Eosinophils # (Manual) 0.0 K/mm3 (0.0-0.4) 11/09/16 03:54 Basophils # (Manual) 0.0 K/mm3 (0.0-0.1) 11/09/16 03:54 Metamyelocytes # 0.0 K/mm3 11/09/16 03:54 Myelocytes # 0.0 K/mm3 11/09/16 03:54 Promyelocytes # 0.0 K/mm3 11/09/16 03:54 Blast Cells # 0.0 K/mm3 11/09/16 03:54 Pathologist Review 11/07/16 10:42 WBC Morphology Not Reportable 11/09/16 03:54 Hypersegmented Neuts Not Reportable 11/09/16 03:54 Hyposegmented Neuts Not Reportable 11/09/16 03:54 Hypogranular Neuts Not Reportable 11/09/16 03:54 Smudge Cells Not Reportable 11/09/16 03:54 Toxic Granulation Not Reportable 11/09/16 03:54 Toxic Vacuolation Not Reportable 11/09/16 03:54 Dohle Bodies Not Reportable 11/09/16 03:54 Pelger-Huet Anomaly Not Reportable 11/09/16 03:54 Risa Rods Not Reportable 11/09/16 03:54 Platelet Estimate Consistent w auto 11/09/16 03:54 Clumped Platelets Not Reportable 11/09/16 03:54 Plt Clumps, EDTA Not Reportable 11/09/16 03:54 Large Platelets Not Reportable 11/09/16 03:54 Giant Platelets Not Reportable 11/09/16 03:54 Platelet Satelliting Not Reportable 11/09/16 03:54 Plt Morphology Comment Not Reportable 11/09/16 03:54 RBC Morphology Not Reportable 11/09/16 03:54 Dimorphic RBCs Not Reportable 11/09/16 03:54 Polychromasia Rare 11/09/16 03:54 Hypochromasia Not Reportable 11/09/16 03:54 Poikilocytosis Not Reportable 11/09/16 03:54 Anisocytosis 1+ 11/09/16 03:54 Microcytosis Not Reportable 11/09/16 03:54 Macrocytosis Not Reportable 11/09/16 03:54 Spherocytes Not Reportable 11/09/16 03:54 Pappenheimer Bodies Not Reportable 11/09/16 03:54 Sickle Cells Not Reportable 11/09/16 03:54 Target Cells Not Reportable 11/09/16 03:54 Tear Drop Cells Not Reportable 11/09/16 03:54 Ovalocytes Not Reportable 11/09/16 03:54 Helmet Cells Not Reportable 11/09/16 03:54 [place] Bodies Not Reportable 11/09/16 03:54 [place] Rings Not Reportable 11/09/16 03:54 [place] Cells Not Reportable 11/09/16 03:54 Bite Cells Not Reportable 11/09/16 03:54 Crenated Cell Not Reportable 11/09/16 03:54 Elliptocytes Not Reportable 11/09/16 03:54 Acanthocytes (Spur) Not Reportable 11/09/16 03:54 Rouleaux Not Reportable 11/09/16 03:54 Hemoglobin C Crystals Not Reportable 11/09/16 03:54 Schistocytes Not Reportable 11/09/16 03:54 Malaria parasites Not Reportable 11/09/16 03:54 Graham Bodies Not Reportable 11/09/16 03:54 Hem Pathologist Commnt No 11/09/16 03:54 POC ABG pH 7.441 (7.35-7.45) 11/07/16 18:06 POC ABG pCO2 30.7 (35-45) L 11/07/16 18:06 POC ABG pO2 79 (80-105) L 11/07/16 18:06 POC ABG HCO3 20.9 11/07/16 18:06 POC ABG Total CO2 22 11/07/16 18:06 POC ABG O2 Sat 96 11/07/16 18:06 POC ABG Base Excess -3 11/07/16 18:06 FiO2 21 % 11/07/16 18:06 Sodium 134 mmol/L (137-145) L 11/09/16 03:54 Potassium 3.7 mmol/L (3.6-5.0) 11/09/16 03:54 Chloride 99.1 mmol/L (98-107) 11/09/16 03:54 Carbon Dioxide 26 mmol/L (22-30) 11/09/16 03:54 Anion Gap 13 mmol/L 11/09/16 03:54 BUN 10 mg/dL (9-20) 11/09/16 03:54 Creatinine 0.7 mg/dL (0.8-1.5) L 11/09/16 03:54 Estimated GFR > 60 ml/min 11/09/16 03:54 BUN/Creatinine Ratio 14.28 % 11/09/16 03:54 Glucose 102 mg/dL (75-100) H 11/09/16 03:54 Lactic Acid < 0.20 mmol/L (0.7-2.0) L 11/07/16 10:42 Calcium 8.2 mg/dL (8.4-10.2) L 11/09/16 03:54 Total Bilirubin 1.30 mg/dL (0.1-1.2) H 11/07/16 10:42 AST 15 units/L (5-40) 11/07/16 10:42 ALT 18 units/L (7-56) 11/07/16 10:42 Alkaline Phosphatase 74 units/L (35-129) 11/07/16 10:42 Total Protein 7.4 g/dL (6.3-8.2) 11/07/16 10:42 Albumin 3.6 g/dL (3.9-5) L 11/07/16 10:42 Albumin/Globulin Ratio 0.9 % 11/07/16 10:42 Urine Color Norma (Yellow) 11/07/16 13:07 Urine Turbidity Clear (Clear) 11/07/16 13:07 Urine pH 5.0 (5.0-7.0) 11/07/16 13:[address] 1.026 (1.003-1.030) 11/07/16 13:07 Urine Protein 100 mg/dl mg/dL (Negative) 11/07/16 13:07 Urine Glucose (UA) Neg mg/dL (Negative) 11/07/16 13:07 Urine Ketones Neg mg/dL (Negative) 11/07/16 13:07 Urine Blood Lg (Negative) 11/07/16 13:07 Urine Nitrite Neg (Negative) 11/07/16 13:07 Urine Bilirubin Neg (Negative) 11/07/16 13:07 Urine Urobilinogen < 2.0 mg/dL (<2.0) 11/07/16 13:07 Ur Leukocyte Esterase Lg (Negative) 11/07/16 13:07 Urine WBC (Auto) 95.0 /HPF (0.0-6.0) H 11/07/16 13:07 Urine RBC (Auto) 30.0 /HPF (0.0-6.0) 11/07/16 13:07 U Epithel Cells (Auto) < 1.0 /HPF (0-13.0) 11/07/16 13:07 Urine Bacteria (Auto) 1+ /HPF (Negative) 11/07/16 13:07 Urine Mucus 1+ /HPF 11/07/16 13:07 Blood Type O POSITIVE 11/07/16 13:40 Antibody Screen TNR 11/07/16 13:40 MELI Antibody Screen Negative 11/07/16 13:40
[2016-11-10] MEDS ORDERED: XYLOCAINE 1% 20 mL ONE (10:10)
[2016-11-10] MEDS ORDERED: MARCAINE 0.25% INFILTRATI ONE (10:10)
--- NOTE | 2016-11-10 10:29 | Anesthesia Day of Surgery ---
Anesthesia Day of Surgery - Day of Surgery Patient Examined: Yes Patient H&P Reviewed: Yes Patient is NPO: Yes
[2016-11-10] MEDS ORDERED: DILAUDID IV PRN (10:30)
[2016-11-10] MEDS ORDERED: XYLOCAINE MPF 2% ONE (10:34)
[2016-11-10] MEDS ORDERED: DIPRIVAN 10 MG/ML IV ONE (10:34)
[2016-11-10] MEDS ORDERED: WATER FOR IRRIG STERILE IR ONE (11:23)
[2016-11-10] MEDS ORDERED: ROBINUL ONE (11:41)
[2016-11-10] MEDS ORDERED: DECADRON ONE (11:46)
[2016-11-10] MEDS ORDERED: ZOFRAN ONE (11:46)
[2016-11-10] MEDS ORDERED: ePHEDrine SULFATE ONE (11:52)
--- NOTE | 2016-11-10 12:43 | Post Operative Note ---
Pre-op diagnosis: severe L epididymo orchitis Post-op diagnosis: same Findings: supperative epidid Procedure: op note Preoperative diagnosis severe left epididymal orchitis and sepsis Postoperative diagnosis is the same Procedure left scrotal expiration left orchiectomy right vasectomy Surgeon Dr. Holly Miles Gen. Findings This is a gentleman with urinary retention. At the time of cystoscopy proximally 2 weeks ago the bladder neck looked relatively open except for small middle lobe nodule. We resected that and postoperatively he did well for 4 days and voided freely. He noticed some blood last Sunday and put a catheter in on his own notifying us. He then stopped catheterizing himself and said there was about 300 mL residual. 2-3 days later he presented with severe pain and swelling of the scrotum with a Pseudomonas epididymal orchitis and urinary tract infection and a white count of almost 50,000 The testicle is severely indurated tender stuck to all the skin and he now presents for treatment. Procedure Patient was brought to the operating room placed on the operating table. Following induction of anesthesia placed in the supine position prepped and draped in a sterile fashion. A oblique incision was made over the left hemiscrotum. The incision was carried through severe edematous fascia to the tunica vaginalis. The vaginalis was stuck to the skin and the surrounding fascia and dissected free. Small vessels were cauterized or tied. The cord was then isolated and 2 separate segments and triply tied and suture ligature ligated Patient procedure well. At this point we felt were identified the right vas and this was not divided but doubly tied with 0 Vicryls to prevent the similar happening on the right side. Procedure minimal blood loss less than 5 mL the drain was brought out through the left hemiscrotum and the skin was closed with interrupted chromic after the fascia was closed with 2-0 chromic Procedure well but recovery room in stable condition family notified thank you Anesthesia: GETA Surgeon: JUAN DANIEL BLAKE Estimated blood loss: minimal Pathology: list (L testes) Specimen disposition: to lab
[2016-11-10] MEDS ORDERED: PERCOCET 5/325 PO PRN (12:46)
--- NOTE | 2016-11-10 14:24 | Post Anesthesia Evaluation ---
- Post Anesthesia Evaluation Patient Participated: Yes Airway Patent: Yes Stable Respiratory Function: Yes Nausea/Vomiting: No Temp > 96.8F: Yes Pain Manageable: Yes Adequeate Hydration: Yes Anesthesia Complications: No Block Receding Appropriately: Not Applicable Patient on Ventilator: No
[2016-11-10] MEDS: LEVAQUIN 750MG/150ML 750 MG/150 ML BAG IV SCH (15:40)
[2016-11-10] MEDS: PROSCAR PO SCH (15:41)
[2016-11-10] MEDS: COZAAR PO SCH (15:41)
[2016-11-10] MEDS: ISOPTO TEARS 0.5% OU SCH (19:44)
[2016-11-10] MEDS ORDERED: AMBIEN PO PRN (22:00)
[2016-11-10] MEDS: LOVENOX SUB-Q SCH (23:17)
[2016-11-11] MEDS: ISOPTO TEARS 0.5% OU SCH ×3 (00:22→13:23)
[2016-11-11] MEDS: PROSCAR PO SCH (10:37)
[2016-11-11] MEDS: COZAAR PO SCH (10:37)
[2016-11-11] MEDS: LEVAQUIN 750MG/150ML 750 MG/150 ML BAG IV SCH (13:21)
[2016-11-11 16:22] VITALS: BP 136/84
--- NOTE | 2016-11-11 17:38 | Progress Note ---
Assessment and Plan lt epididymorchitis - s/p orchiectomy - healing well - home with pederson - Rx levaquing / oxycodone - f/u few days - received IV dose of Abx about 3 PM - disc triggers for er w/ pt Subjective Date of service: 11/11/16 Principal diagnosis: L epididymoorchitis Interval history: no chill no cp/sob. feels much better Objective - Constitutional Vitals: Vital Signs - 12hr 11/11/16 11/11/16 11/11/16 08:00 12:00 16:00 Temperature 97.9 F 98.5 F 98 F Pulse Rate [ 58 L 58 L 80 Left Radial] Respiratory 20 22 20 Rate Blood Pressure 160/76 150/72 136/84 [Left Arm] O2 Sat by Pulse 97 98 98 Oximetry - Gastrointestinal Rectal Exam: other ( exam drain / sutures no eythema beyond scrotum; no sig tenderness, ) - Labs CBC & Chem 7: 11/10/16 04:44 11/09/16 03:54
--- NOTE | 2016-11-11 17:44 | Progress Note ---
Assessment and Plan Assessment and plan: 66 YO Male with BPH- who self caths as needed, HTN, Obesity presents to ED for evaluation. 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 Pt states that he has been experiencing pain and swelling in his left testicle as well as pain with urination for 2 days, he was found to have a fever to 103. Testicular ultrasound showed left orchitis Septic Shock/severe sepsis w/ hypotension which responded to IVF Received IVF, Hypotension is now resolved Sepsis Protocol: IV abx, IVF, supportive care, monitor uop q shift, blood cultures ngtd, urine cx grew de guzman sensitive pseudomonas Fever curve is coming down, wbc trending down left epididymoorchitis .Pateint had L orchiectomy and R vasectomy in 11/10Patient is ready received Rocephin for empiric treatment of possible gonorrhea, urine culture grew de guzman sensitive pseudomonas , blood cx-NGTD Continue Levaquin which will cover enteric organisms and chlamydia, patient will need a total of 10 days of Levaquin. He can be transitioned to by mouth when improved urology consult appreciated, repeat U/S unchanged -planned for orchiectomy today HTN (hypertension) continue home medications BPH Continue his home medications straight cath PRN DVT prophylaxis Lovenox Subjective Date of service: 11/11/16 Principal diagnosis: L epididymoorchitis Interval history: S/p L Orchiectomy and Rt Vasectomy.Post op doing well. Discharge summary See notes Objective - Constitutional Vitals: Vital Signs - 12hr 11/11/16 11/11/16 11/11/16 08:00 12:00 16:00 Temperature 97.9 F 98.5 F 98 F Pulse Rate [ 58 L 58 L 80 Left Radial] Respiratory 20 22 20 Rate Blood Pressure 160/76 150/72 136/84 [Left Arm] O2 Sat by Pulse 97 98 98 Oximetry General appearance: Present: no acute distress, well-nourished - EENT Eyes: PERRL, EOM intact ENT: hearing intact, clear oral mucosa Ears: bilateral: normal - Neck Neck: supple, normal ROM - Respiratory Respiratory effort: normal Respiratory: bilateral: CTA - Breasts Breasts: normal - Cardiovascular Rhythm: regular Heart Sounds: Present: S1 & S2. Absent: gallop, rub Extremities: pulses intact, No edema, normal color, Full ROM - Gastrointestinal General gastrointestinal: Present: soft, non-tender, non-distended, normal bowel sounds - Genitourinary Male genitourinary: normal, tender, scrotal edema - Integumentary Integumentary: clear, warm, dry - Musculoskeletal Musculoskeletal: 1, strength equal bilaterally - Neurologic Neurologic: moves all extremities - Psychiatric Psychiatric: memory intact, appropriate mood/affect, intact judgment & insight - Allied health notes Allied health notes reviewed: nursing, case management - Labs CBC & Chem 7: 11/10/16 04:44 11/09/16 03:54
--- NOTE | 2016-11-11 17:54 | Discharge Summary ---
Providers - Providers Date of Admission: 11/07/16 14:56 Date of discharge: 11/11/16 Attending physician: MD Dr Yoli JIANG Primary care physician: JUAN DANIEL BLAKE Hospitalization Condition: Good Procedures: op note Preoperative diagnosis severe left epididymal orchitis and sepsis Postoperative diagnosis is the same Procedure left scrotal expiration left orchiectomy right vasectomy Surgeon Dr. Holly Miles Gen. Findings This is a gentleman with urinary retention. At the time of cystoscopy proximally 2 weeks ago the bladder neck looked relatively open except for small middle lobe nodule. We resected that and postoperatively he did well for 4 days and voided freely. He noticed some blood last Sunday and put a catheter in on his own notifying us. He then stopped catheterizing himself and said there was about 300 mL residual. 2-3 days later he presented with severe pain and swelling of the scrotum with a Pseudomonas epididymal orchitis and urinary tract infection and a white count of almost 50,000 The testicle is severely indurated tender stuck to all the skin and he now presents for treatment. Procedure Patient was brought to the operating room placed on the operating table. Following induction of anesthesia placed in the supine position prepped and draped in a sterile fashion. A oblique incision was made over the left hemiscrotum. The incision was carried through severe edematous fascia to the tunica vaginalis. The vaginalis was stuck to the skin and the surrounding fascia and dissected free. Small vessels were cauterized or tied. The cord was then isolated and 2 separate segments and triply tied and suture ligature ligated Patient procedure well. At this point we felt were identified the right vas and this was not divided but doubly tied with 0 Vicryls to prevent the similar happening on the right side. Procedure minimal blood loss less than 5 mL the drain was brought out through the left hemiscrotum and the skin was closed with interrupted chromic after the fascia was closed with 2-0 chromic Procedure well but recovery room in stable condition family notified thank you Hospital course: See my progress note for today lt epididymorchitis - s/p orchiectomy - healing well - home with pederson - Rx levaquing / oxycodone - f/u few days - received IV dose of Abx about 3 PM - disc triggers for er w/ pt Disposition: DC- TO HOME OR SELFCARE Core Measure Documentation - Palliative Care Palliative Care/ Comfort Measures: Not Applicable - Core Measures Any of the following diagnoses?: none Exam - Constitutional Vitals: Temp Pulse Resp BP Pulse Ox 98 F 80 20 136/84 98 11/11/16 16:00 11/11/16 16:00 11/11/16 16:00 11/11/16 16:00 11/11/16 16:00 General appearance: Present: no acute distress, well-nourished - EENT Eyes: Present: PERRL ENT: hearing intact, clear oral mucosa - Neck Neck: Present: supple, normal ROM - Respiratory Respiratory effort: normal Respiratory: bilateral: CTA - Cardiovascular Heart Sounds: Present: S1 & S2. Absent: rub, click - Extremities Extremities: pulses symmetrical, No edema Peripheral Pulses: within normal limits - Abdominal General gastrointestinal: Present: soft, non-tender, non-distended, normal bowel sounds Male genitourinary: Present: normal - Integumentary Integumentary: Present: clear, warm, dry - Musculoskeletal Musculoskeletal: gait normal, strength equal bilaterally - Psychiatric Psychiatric: appropriate mood/affect, intact judgment & insight - Neurologic Neurologic: CNII-XII intact, moves all extremities Plan Activity: no restrictions Wound: keep clean and dry, change dressing, per your surgeon's advice, drain care as instructed Follow up with: JUAN DANIEL BLAKE MD [Primary Care Provider] - 3-5 Days Forms: STI Treatment and Prevention Prescriptions: Levofloxacin [Levaquin TAB] 500 mg PO QDAY #7 tablet oxyCODONE /ACETAMINOPHEN [Percocet 5/325 mg] 1 tab PO Q6HR PRN #25 tablet PRN Reason: Pain
== END 2016-11-11 18:33 | disposition home or self-care (01) | DRG 853 ==
LOC: ED 10:02 → 3A 14:56
PROVIDERS: ADMIT Internal Medicine; ATTEND Internal Medicine
PROC: 0VBN0ZZ Excision of Right Vas Deferens, Open Approach (ICD-10-PCS; 2016-11-07)
PROC: 4A033R1 Measurement of Arterial Saturation, Peripheral, Percutaneous Approach (ICD-10-PCS; 2016-11-07)
PROC: 0VBB0ZZ Excision of Left Testis, Open Approach (ICD-10-PCS; principal; 2016-11-10)
DX: A41.9 Sepsis, unspecified organism (principal); R65.21 Severe sepsis with septic shock; N39.0 Urinary tract infection, site not specified; I10 Essential (primary) hypertension; E66.9 Obesity, unspecified; N40.0 Benign prostatic hyperplasia without lower urinary tract symptoms; N45.3 Epididymo-orchitis; Z68.36 Body mass index [BMI] 36.0-36.9, adult
CPT/HCPCS: 36415; 36600; 74177; 80048; 80053; 81001; 82140; 82803; 85007; 85025; 86850; 86900; 86901; 87040; 87075; 87076; 87086; 87116; 87186; 88305; 88312; 93975; 96361; 96374; J1100; J1170; J1650; J1956; J2250; J2405; J2543; J2704; J7030; Q9967

== ENCOUNTER 2017-10-26 08:45 | Outpatient (CLI) | payer BC ==
--- NOTE | 2017-10-26 18:35 | Treadmill Report ---
TREADMILL STRESS TEST INDICATIONS FOR PROCEDURE: cardiac risk assessment Informed consent was obtained. ELECTROCARDIOGRAM: The baseline electrocardiogram demonstrates sinus bradycardia at 49 beats per minute. PROCEDURE: The patient exercised according to the Efren protocol for a total of 9 minutes reaching a peak heart rate of 134 beats per minute. The resting blood pressure was 152/84. The peak blood pressure was 196/100. The patient achieved 86% of the maximum predicted heart rate response and attained a workload of 10.3 mets. Exercise was limited by fatigue. There was no chest pain. The electrocardiographic response to treadmill exercise is abnormal. Frequent ventricular premature beats often in a pattern of bigeminy were noted during exercise. The patient also developed ST segment repolarization abnormalities consisting of 1-1.5 mm of horizontal and downsloping ST segment depression in the inferolateral leads. As exercise progressed, this became more pronounced and downsloping ST segment depression of 3-4 mm was also observed. The repolarization abnormalities returned back toward baseline in the recovery phase, but persisted at the end of the protocol. CONCLUSIONS: The exercise test is clinically nonischemic, but electrocardiographically abnormal and suggestive of ischemia. Ventricular ectopy as noted above was present. Diastolic hypertension at peak exercise was observed. The patient exhibited normal exercise tolerance. JOB# [id number] FAUZIA/RYANNE MOISED
== END 2017-10-26 08:46 | disposition home or self-care (01) ==
LOC: CARD 08:45
PROVIDERS: ATTEND Internal Medicine Cardiovascular Disease
DX: R07.89 Other chest pain (principal); I10 Essential (primary) hypertension; E66.9 Obesity, unspecified
CPT/HCPCS: 93017

== ENCOUNTER 2018-01-31 08:40 | Outpatient (CLI) | payer BC ==
--- NOTE | 2018-02-04 22:00 | Treadmill Report ---
THALLIUM STRESS TEST LEFT VENTRICLE: Left ventricular chamber size is within normal spread. Perfusion study demonstrates homogeneous uptake of the tracer in all segments, no significant perfusion defects identified. Gated analysis demonstrates normal left ventricular systolic function, ejection fraction 63%. CONCLUSION: Normal myocardial perfusion study. JOB# [id number] CA/NTS
== END 2018-01-31 08:41 | disposition home or self-care (01) ==
LOC: CARD 08:40
PROVIDERS: ATTEND Internal Medicine Cardiovascular Disease
DX: R07.9 Chest pain, unspecified (principal); I10 Essential (primary) hypertension
CPT/HCPCS: 78452; 93017; A9502

== ENCOUNTER 2018-07-17 06:41 | Outpatient (CLI) | payer BC ==
[2018-07-17 07:16] LABS: Basophils % (Auto) 0.4 % (0.0-1.8); Eosinophils # (Auto) 0.2 K/mm3 (0.0-0.4); Eosinophils % (Auto) 2.9 % (0.0-4.3); Hematocrit 41.1 % (35.5-45.6); Hemoglobin 14.1 gm/dl (11.8-15.2); Lymphocytes # (Auto) 1.3 K/mm3 (1.2-5.4); Lymphocytes % (Auto) 17.9 % (13.4-35.0); Mean Corpuscular HGB Conc 34 % (32-34); Mean Corpuscular Volume 89 fl (84-94); Monocytes # (Auto) 0.9 K/mm3 (0.0-0.8); Monocytes % (Auto) 11.9 % (0.0-7.3); Platelet Count 153 K/mm3 (140-440); Red Blood Count 4.62 M/mm3 (3.65-5.03); Red Cell Distribution Width 14.7 % (13.2-15.2)
[2018-07-17 07:31] LABS: Alanine Aminotransferase 12 units/L (7-56); Albumin 3.8 g/dL (3.9-5); BUN/Creatinine Ratio 11; Blood Urea Nitrogen 10 mg/dL (9-20); Calcium 8.9 mg/dL (8.4-10.2); Hemolysis Index 4; LDL Cholesterol,Direct 94 mg/dL (50-130)
[2018-07-17 07:50] LABS: Chol/HDL Ratio 3.13 %; HDL Cholesterol 45 mg/dL (40-59)
== END 2018-07-17 06:42 | disposition home or self-care (01) ==
LOC: LAB 06:41
PROVIDERS: ATTEND Internal Medicine
DX: Z00.00 Encounter for general adult medical examination without abnormal findings (principal); I10 Essential (primary) hypertension; E66.9 Obesity, unspecified
CPT/HCPCS: 36415; 80053; 80061; 84153; 85025

== ENCOUNTER 2019-04-18 09:18 | Outpatient (CLI) | payer BC ==
[2019-04-18 09:41] LABS: Hematocrit 43.2 % (35.5-45.6); Hemoglobin 14.6 gm/dl (11.8-15.2); Mean Corpuscular HGB Conc 34 % (32-34); Mean Corpuscular Volume 90 fl (84-94); Platelet Count 117 K/mm3 (140-440); Red Blood Count 4.79 M/mm3 (3.65-5.03); Red Cell Distribution Width 14.6 % (13.2-15.2)
[2019-04-18 10:10] LABS: Alanine Aminotransferase 18 units/L (7-56); Albumin 3.7 g/dL (3.9-5); BUN/Creatinine Ratio 16; Blood Urea Nitrogen 14 mg/dL (9-20); Hemolysis Index 2
[2019-04-18 10:11] LABS: Erythrocyte Sedimentation Rate 23 mm/Hr (0-20)
[2019-04-18 10:39] LABS: Band Neutrophils # (Manual) 0.2 K/mm3; Basophils % (Manual) 0 % (0.0-1.8); Eosinophils % (Manual) 0 % (0.0-4.3); Total Cells Counted 100
[2019-04-18 10:40] LABS: RBC Morphology Normal
[2019-04-18 10:41] LABS: Platelet Estimate Consistent w Auto
--- NOTE | 2019-04-18 10:58 | XRay Report ---
CHEST 2 VIEWS INDICATION: 780.60 UNSPECIFIED FEVER. COMPARISON: 02/10/2016 FINDINGS: Support devices: None. Heart: Within normal limits. Lungs/pleura: No acute air space or interstitial disease. No pneumothorax. Additional findings: None. IMPRESSION: Normal chest x-ray Signer Name: Chris Beltre Jr, MD Signed: 04/18/2019 10:53 AM Workstation Name: [id number]
--- NOTE | 2019-04-18 11:49 | Cat Scan Report ---
CT abdomen pelvis w con INDICATION: 599.72 MICROSCOPIC HEMATURIA. TECHNIQUE: All CT scans at this location are performed using the following dose modulation technique: Automated exposure control. CONTRAST: Omnipaque 300, 100 cc IV injection. COMPARISON: CT abdomen and pelvis 11/07/2016. CT ABDOMEN: The parenchymal organs are unremarkable in appearance other than numerous small left master l peripelvic cysts. Negative for abdominal mass, fluid or inflammation. The bowel is not dilated or t hickened. A normal appendix is identified. CT PELVIS: Moderate prostate enlargement with a prominent pyramidal lobe. Negative for significant bl adder wall thickening. No pelvic mass or adenopathy. IMPRESSION: 1. Prostatomegaly. 2. Left renal peripelvic cysts. Signer Name: Abdirizak Duarte MD Signed: 04/18/2019 11:45 AM Workstation Name: [id number]
== END 2019-04-18 09:19 | disposition home or self-care (01) ==
LOC: CT 09:18
PROVIDERS: ATTEND Internal Medicine
DX: N40.0 Benign prostatic hyperplasia without lower urinary tract symptoms (principal); N28.1 Cyst of kidney, acquired; R50.9 Fever, unspecified; R31.29 Other microscopic hematuria; I10 Essential (primary) hypertension
CPT/HCPCS: 36415; 71046; 74177; 80053; 84443; 85007; 85025; 85652; Q9967